=== PATIENT | male | born 1965 | race Caucasian/White ===

== ENCOUNTER 2017-12-31 09:44 | Observation (INO) ==
--- NOTE | 2017-12-31 10:10 | Emergency Department Note ---
Disposition Clinical Impression: Cerebrovascular accident Disposition: Admitted As Inpatient Condition: Undetermined General Adult HPI - General Chief complaint: ED Neuro Symptoms/Deficit Stated complaint: L sided numbness x 3 days ago Time Seen by Provider: 12/31/17 10:06 Source: patient Limitations: no limitations - History of Present Illness Pain Scale: 8 - Related Data Home Medications Medication Instructions Recorded Confirmed Albuterol Sulfate [Albuterol 2 puff IH Q6HR PRN 12/31/17 12/31/17 Inhaler] Aspirin Enteric Coated [Aspirin EC] 81 mg PO DAILY 12/31/17 12/31/17 BuPROPion SR (12 HR) [Wellbutrin 150 mg PO BID 12/31/17 12/31/17 SR] Tiotropium [Spiriva] 18 mcg IH DAILY 12/31/17 12/31/17 Allergies Allergy/AdvReac Type Severity Reaction Status Date / Time No Known Allergies Allergy Verified 12/31/17 09:57 Past Medical History - Past Medical History Medical history: Reports: CHF, COPD, coronary artery disease, hyperlipidemia, myocardial infarction, other Psychiatric history: Reports: depression - Social History Smoking Status: Current every day smoker Smokeless Tobacco Status: No Alcohol use: Reports: occasionally Drug use: Reports: none Physical Exam - General Limitations: no limitations General appearance: alert Course Vital Signs Temperature 98.3 F 12/31/17 09:57 Pulse Rate 101 12/31/17 09:57 Respiratory Rate 20 12/31/17 09:57 Blood Pressure 145/82 12/31/17 09:57 O2 Sat by Pulse Oximetry 97 12/31/17 09:57 Temperature 97.9 F 12/31/17 16:42 Pulse Rate 73 12/31/17 16:42 Respiratory Rate 17 12/31/17 16:42 Blood Pressure 127/80 12/31/17 16:42 O2 Sat by Pulse Oximetry 97 12/31/17 16:42 Oxygen Delivery Oxygen Delivery Room Air Medical Decision Making - Lab Data Result diagrams: 12/31/17 10:13 12/31/17 10:13 Lab Results 12/31/17 12/31/17 Range/Units 10:13 10:13 WBC 6.8 (4.3-11.1) K/mcL RBC 5.02 (4.19-5.50) M/mcL Hgb 15.0 (12.9-16.9) g/dL Hct 43.0 (37.5-50.1) % MCV 85.7 (83.0-100.0) fL MCH 29.9 (28.0-33.3) pg MCHC 34.9 (31.6-35.5) g/dL RDW 14.1 (11.5-14.5) % Plt Count 303 (140-400) K/mcL MPV 9.9 (9.4-12.4) fL Immature Gran % 0.4 (0-4) % Seg Neutrophils % 67.3 % Lymphocytes % 23.0 % Monocytes % 7.7 % Eosinophils % 0.7 % Basophils % 0.9 % Neutrophils # 4.6 (1.6-8.9) K/mcL Lymphocytes # 1.6 (0.6-4.6) K/mcL Monocytes # 0.5 (0.0-1.3) K/mcL Eosinophils # 0.1 (0.0-0.6) K/mcL Basophils # 0.1 (0.0-0.2) K/mcL Sodium 133 L (136-145) mEq/L Potassium 4.7 (3.5-5.1) mEq/L Chloride 104 (98-107) mEq/L Carbon Dioxide 23 (23-29) mEq/L BUN 7 (6-20) mg/dL Creatinine 0.71 (0.70-1.30) mg/dL Est GFR ( Amer) > 60 (> 60) Est GFR (Non-Af Amer) > 60 (> 60) BUN/Creatinine Ratio 10 (6-26) Glucose 118 H (70-105) mg/dL Calculated Osmolality 275 L (280-300) Calcium 9.6 (8.6-10.3) mg/dL Troponin I < 0.03 (< 0.04) ng/mL Attestation Statement - Attestation Attestation: I examined this patient and my medical decision-making was reviewed with the Resident Physician. I agree with the documented findings, disposition and treatment plan as described except to the extent set forth below. [id number] time provided Patient presents with left-sided neurologic symptoms over the past 3 days. He is not a TPA candidate based on length of time since onset of symptoms. He also complains of left upper extremity pain but states he has "a bad back." The patient was evaluated in conjunction with the resident physician . Because symptom onset was 3 days ago a stroke alert was not activated
--- NOTE | 2017-12-31 10:19 | Emergency Department Note ---
Disposition Clinical Impression: Cerebrovascular accident Qualifiers: CVA mechanism: unspecified Qualified Code(s): I63.9 - Cerebral infarction, unspecified Disposition: Admitted As Inpatient Condition: Undetermined Referrals: NONE,PCP [Family Provider] - Forms: ED Satisfaction Letter Time of Disposition: 11:35 Neuro HPI - General Chief Complaint: ED Neuro Symptoms/Deficit Stated Complaint: L sided numbness x 3 days ago Time Seen by Provider: 12/31/17 10:06 Source: patient Mode of arrival: ambulatory Limitations: no limitations Nursing Notes Reviewed: Yes Vital Signs Reviewed: Yes - History of Present Illness HPI Narrative: 52-year-old male with history of chronic back pain with a pain stimulator in his back, history of CAD with previous [place], arrives to emergency department with left sided numbness and tingling from his face, to his left upper extremity, down to his left lower extremity. He has mild weakness associated with his left lower extremity says but this may be baseline for him due to his back problems. The patient states this occurred 3 days ago. We will not call a stroke alert as the patient's symptoms started 3 days ago. Patient denies any other complaints at this time include chest pain, difficulty breathing, abdominal pain, headache, fever, chills, trauma. - Related Data Allergies/Adverse Reactions: Allergies Allergy/AdvReac Type Severity Reaction Status Date / Time No Known Allergies Allergy Verified 12/31/17 09:57 All systems ED: reviewed and negative except as stated. Constitutional: Reports: weakness. Denies: fever, chills ENT ED: Denies: congestion Cardiovascular: Denies: chest pain Respiratory: Denies: dyspnea Gastrointestinal: Denies: abdominal pain Musculoskeletal: Reports: back pain. Denies: neck pain, arthralgia, myalgia Integumentary: Denies: rash Neurological: Reports: weakness, numbness, paresthesias. Denies: headache, confusion, abnormal gait, vertigo Past Medical History - Past Medical History Attestation: Yes The following information was validated with the patient. Source: patient, old records reviewed Medical history: Reports: CHF, COPD, coronary artery disease, hyperlipidemia, myocardial infarction, other Surgical history: Reports: other (Stimulator in back) Psychiatric history: Reports: depression - Social History Smoking Status: Current every day smoker Smokeless Tobacco Status: No Alcohol use: Reports: occasionally Drug use: Reports: none Physical Exam - General Limitations: no limitations General appearance: alert, in no apparent distress, other (Baseline tremor) - Head Head exam: atraumatic, normocephalic, normal inspection - Eye Eye exam: Present: normal appearance, PERRL, EOMI - ENT ENT exam: normal exam, normal oropharynx, mucous membranes moist - Neck Neck exam: Present: normal inspection, full ROM, trachea midline - Chest Chest inspection: Present: normal inspection, symmetric chest wall rise - Respiratory Respiratory exam: Present: other (Coarse breath sounds) - Cardiovascular Cardiovascular exam: Present: normal rhythm, tachycardia, normal heart sounds - Abdominal Exam Abdominal exam: Present: soft, Non-Tender. Absent: tenderness, distention, guarding, rebound, rigidity - Extremities Exam Extremities exam: Present: normal inspection, full ROM (mildly reduced in b/l LE due to chronic back pain). Absent: tenderness, pedal edema - Back Exam Back exam: Present: normal inspection, full ROM. Absent: tenderness - Neurological Exam Neurological exam: Present: alert, oriented X3 - Expanded Neurological Exam Patient oriented to: Present: person, place, time Speech: Present: fluid speech Cranial nerves: EOM function (II, III, IV, ): Normal, facial sensation (V): Abnormal Left, facial palsy (VII): Normal Cerebellar function: finger to nose: Abnormal Left Motor strength - LUE: 4/5 Motor strength - RUE: 4/5 Motor strength - LLE: 3/5 Motor strength - RLE: 3/5 Sensory exam upper extremity: light touch: Abnormal Left Sensory exam lower extremity: light touch: Abnormal Left Coma Scale Eye Opening: Spontaneous Coma Scale Motor Response: Obeys Commands Coma Scale Verbal Response: Oriented Coma Scale Total: 15 - Skin Skin exam: Present: warm, dry, intact, normal color Course Vital Signs Temperature 98.3 F 12/31/17 09:57 Pulse Rate 101 12/31/17 09:57 Respiratory Rate 20 12/31/17 09:57 Blood Pressure 145/82 12/31/17 09:57 O2 Sat by Pulse Oximetry 97 12/31/17 09:57 Temperature 98.3 F 12/31/17 09:57 Pulse Rate 77 12/31/17 10:53 Respiratory Rate 16 12/31/17 10:53 Blood Pressure 125/84 12/31/17 10:53 O2 Sat by Pulse Oximetry 95 12/31/17 10:53 Oxygen Delivery Oxygen Delivery Room Air Neuro Symptoms/Deficit - MDM Narrative Medical decision making narrative: Workup in the emergency department demonstrates no other etiology for patient's symptoms. The patient is mildly hyponatremic. Given the patient's left-sided paresthesias, we will admit the patient to the hospital. There is a likely component of radiculopathy associated with the cervical spine within the patient 's symptoms. The patient denies any other complaints at this time. He was made aware that we will be admitting him and agrees to plan. No further questions or concerns noted at this time. Accepted by Dr. Ramirez. - Lab Data Lab results reviewed: Yes I reviewed the patient's lab results. Result diagrams: 12/31/17 10:13 12/31/17 10:13 Lab Results 12/31/17 12/31/17 Range/Units 10:13 10:13 WBC 6.8 (4.3-11.1) K/mcL RBC 5.02 (4.19-5.50) M/mcL Hgb 15.0 (12.9-16.9) g/dL Hct 43.0 (37.5-50.1) % MCV 85.7 (83.0-100.0) fL MCH 29.9 (28.0-33.3) pg MCHC 34.9 (31.6-35.5) g/dL RDW 14.1 (11.5-14.5) % Plt Count 303 (140-400) K/mcL MPV 9.9 (9.4-12.4) fL Immature Gran % 0.4 (0-4) % Seg Neutrophils % 67.3 % Lymphocytes % 23.0 % Monocytes % 7.7 % Eosinophils % 0.7 % Basophils % 0.9 % Neutrophils # 4.6 (1.6-8.9) K/mcL Lymphocytes # 1.6 (0.6-4.6) K/mcL Monocytes # 0.5 (0.0-1.3) K/mcL Eosinophils # 0.1 (0.0-0.6) K/mcL Basophils # 0.1 (0.0-0.2) K/mcL Sodium 133 L (136-145) mEq/L Potassium 4.7 (3.5-5.1) mEq/L Chloride 104 (98-107) mEq/L Carbon Dioxide 23 (23-29) mEq/L BUN 7 (6-20) mg/dL Creatinine 0.71 (0.70-1.30) mg/dL Est GFR ( Amer) > 60 (> 60) Est GFR (Non-Af Amer) > 60 (> 60) BUN/Creatinine Ratio 10 (6-26) Glucose 118 H (70-105) mg/dL Calculated Osmolality 275 L (280-300) Calcium 9.6 (8.6-10.3) mg/dL Troponin I < 0.03 (< 0.04) ng/mL - Radiology Data Radiology results reviewed: Yes I reviewed the patient's radiology results. Chest X-Ray 12/31/17 10:13 IMPRESSION: Stable chest with no acute cardiopulmonary process. Emphysema. D/ / Florentin Baca MD / Florentin Baca MD Interpreting Provider: Florentin Baca MD Head CT 12/31/17 10:13 IMPRESSION: No acute intracranial abnormality. Prominent white matter disease noted bilaterally which may be related to chronic microvascular disease versus demyelination. Given the patient's symptoms, brain MRI should be considered for further evaluation. D/ / Florentin Baca MD / Florentin Baca MD Interpreting Provider: Florentin aBca MD - EKG Data EKG attestation: Yes I reviewed and interpreted this EKG. EKG results narrative: 76 heart rate. Normal sinus rhythm. No ST elevation or ST depression noted. EKG with nonspecific changes noted from EKG from 04/16/2013. NIH Stroke Scale - Level of Consciousness LOC: Alert - LOC Questions LOC Questions: Answers both correctly - LOC Commands LOC Commands: Performs both correctly - Best Gaze Best Gaze: Normal - Visual Visual: No visual loss - Facial Palsy Facial Palsy: Normal - Motor Arms Motor Arm-Left: No drift for 10 seconds Motor Arm-Right: No drift for 10 seconds - Motor Legs Motor Leg-Left: No drift for 5 seconds Motor Leg-Right: No drift for 5 seconds - Limb Ataxia Limb Ataxia: Normal, No Ataxia - Sensory Sensory: Mild to moderate loss, "not as sharp" - Best Language Best Language: No aphasia - Dysarthria Dysarthria: Normal - Extinction and Inattention Extinction and Inattention: Normal - NIHSS Total Score NIHSS Total Score: 1 TPA Checklist - LKW: 3-4.5 hrs Add. Warnings/Precautions Patient/family understanding: The patient/family members have been counseled and understood the risk, benefit , and alternatives of treatment.
[2017-12-31 10:53] LABS: Basophils # 0.1 K/mcL (0.0-0.2); Basophils % 0.9 %; Eosinophils # 0.1 K/mcL (0.0-0.6); Eosinophils % 0.7 %; Immature Granulocytes % 0.4 % (0-4); Lymphocytes # 1.6 K/mcL (0.6-4.6); Mean Corpuscular HGB Conc 34.9 g/dL (31.6-35.5); Mean Corpuscular Hemoglobin 29.9 pg (28.0-33.3); Mean Corpuscular Volume 85.7 fL (83.0-100.0); Mean Platelet Volume 9.9 fL (9.4-12.4); Monocytes # 0.5 K/mcL (0.0-1.3); Monocytes % 7.7 %; Neutrophils # 4.6 K/mcL (1.6-8.9); Platelet Count 303 K/mcL (140-400); Red Blood Count 5.02 M/mcL (4.19-5.50); Red Cell Distribution Width 14.1 % (11.5-14.5); Segmented Neutrophils % 67.3 %
[2017-12-31 11:20] LABS: BUN/Creatinine Ratio 10 (6-26); Blood Urea Nitrogen 7 mg/dL (6-20); Calcium 9.6 mg/dL (8.6-10.3); Carbon Dioxide 23 mEq/L (23-29); Chloride 104 mEq/L (98-107); Glucose 118 mg/dL (70-105); Osmolality,Calculated 275 (280-300); Potassium 4.7 mEq/L (3.5-5.1); Sodium 133 mEq/L (136-145); Troponin I < 0.03 ng/mL (< 0.04); eGFR For African Americans > 60 (> 60); eGFR For Non-African Americans > 60 (> 60)
[2017-12-31] MEDS ORDERED: Acetaminophen 325 MG TABLET PO PRN (13:03)
--- NOTE | 2017-12-31 13:56 | Internal Med History&Physical ---
<Derrick Perez - Last Filed: 12/31/17 15:58> Date of Encounter: 12/31/17 Time of Encounter: 13:47 Internal Medicine - H&P: HPI Admitted From: Home Plans for Post Hospital Care: Home History of present illness: 52-year-old male with history of chronic back pain with a pain stimulator in his back, history of CAD with previous [place], arrives to emergency department with left sided numbness and tingling from his face, to his left upper extremity, down to his left lower extremity. He has mild weakness associated with his left lower extremity says but this may be baseline for him due to his back problems. The patient states this occurred 3 days ago. He also reported left side blurry vision. Patient denies any other complaints at this time include chest pain, difficulty breathing, abdominal pain, headache, fever, chills, trauma. At the ED, his vital signs were stable. Labs were all unremarkable. CT head revealed bilateral hypodensity near caudae nucleus and external capsule, right side more prominent than left side. Stroke alert was not called because of the lenghth of the symptoms. He will be admitted as inpatient for further management. Past Med Surg Social Fam HX - Past Medical History Medical history: CHF, COPD, coronary artery disease, hyperlipidemia, myocardial infarction, other Psychiatric history: depression - Past Surgical History Surgical History: other (Stimulator in back) - Social History Smoking Status: Current every day smoker Smokeless Tobacco Status: No Alcohol use: occasionally Drug use: none Internal Medicine - H&P: Meds Albuterol Sulfate [Albuterol Inhaler] 2 puff IH Q6HR PRN 12/31/17 [History] Aspirin Enteric Coated [Aspirin EC] 81 mg PO DAILY 12/31/17 [History] BuPROPion SR (12 HR) [Wellbutrin SR] 150 mg PO BID 12/31/17 [History] Tiotropium [Spiriva] 18 mcg IH DAILY 12/31/17 [History] 3 Allergy/AdvReac Type Severity Reaction Status Date / Time No Known Allergies Allergy Verified 12/31/17 09:57 All Systems PM: A 10-system review of systems was performed and is negative for pertinent findings except as documented above in the HPI. Review of systems: REVIEW OF SYSTEMS: CONSTITUTIONAL: No weight loss, fever, chills, weakness or fatigue. HEENT: Eyes: see HPI. SKIN: No rash or itching. CARDIOVASCULAR: see HPI.. RESPIRATORY: No shortness of breath, cough or sputum. GASTROINTESTINAL: No anorexia, nausea, vomiting or diarrhea. No abdominal pain or blood. GENITOURINARY: No dysuria, urgency, or frequency. NEUROLOGICAL: see HPI. MUSCULOSKELETAL: No muscle, back pain, joint pain or stiffness. HEMATOLOGIC: No anemia, bleeding or bruising. LYMPHATICS: No enlarged nodes. No history of splenectomy. PSYCHIATRIC: No history of depression or anxiety. ENDOCRINOLOGIC: No reports of sweating, cold or heat intolerance. No polyuria or polydipsia. - Constitutional Vitals: Temp Pulse Resp BP Pulse Ox 98.3 F 65 16 146/97 97 12/31/17 09:57 12/31/17 13:42 12/31/17 13:42 12/31/17 13:42 12/31/17 13:42 General appearance: Present: A&O X 3 Exam: PHYSICAL EXAMINATION: GENERAL APPEARANCE: The patient is alert, oriented and in no acute distress. HEENT: Head is normocephalic. The sinuses are nontender. Pupils are equal and reactive. The nares are patent. Oropharynx clear without lesions. NECK: Supple without lymphadenopathy. no carotid bruit. HEART: Regular rate and rhythm. LUNGS: No crackles or wheezes are heard. ABDOMEN: Soft, nontender, nondistended with good bowel sounds heard. Inguinal area is normal. EXTREMITIES: Without cyanosis, clubbing or edema. NEUROLOGICAL: facial symmetrical no droop, left side facial sensation decreased. left UE and LE strength 4/5, right side 5/5. Left side sensation decreased on both UE and LE. DTR 2+, at right UE and LE, 1+ on left UE and LE, cerebellar sign normal. SKIN: Warm and dry without any rash. Internal Med - H&P Results - Labs CBC & Chem 7: 12/31/17 10:13 12/31/17 10:13 Labs: Short CBC 12/31/17 Range/Units 10:13 WBC 6.8 (4.3-11.1) K/mcL Hgb 15.0 (12.9-16.9) g/dL Hct 43.0 (37.5-50.1) % Plt Count 303 (140-400) K/mcL Neutrophils # 4.6 (1.6-8.9) K/mcL BMP 12/31/17 10:13 Sodium 133 L Potassium 4.7 Chloride 104 Carbon Dioxide 23 BUN 7 Creatinine 0.71 Glucose 118 H Calcium 9.6 Cardiac Enzymes 12/31/17 Range/Units 10:13 Troponin I < 0.03 (< 0.04) ng/mL - Impressions ITS Impressions Chest X-Ray 12/31/17 10:13 IMPRESSION: Stable chest with no acute cardiopulmonary process. Emphysema. D/ / Florentin Baca MD / Florentin Baca MD Interpreting Provider: Florentin Baca MD Head CT 12/31/17 10:13 IMPRESSION: No acute intracranial abnormality. Prominent white matter disease noted bilaterally which may be related to chronic microvascular disease versus demyelination. Given the patient's symptoms, brain MRI should be considered for further evaluation. D/ / Florentin Baca MD / Florentin Baac MD Interpreting Provider: Florentin Baca MD - Assessment and plan (1) Cerebrovascular accident Current Visit: Yes Status: Acute Assessment and plan: - symptoms developed three days ago and out the therapy window. - CT head revealed prominent hypodensity at right caudea nucleus and right ecternal capsule, suggests stroke of Rt MCA panetrating branches. - unable to obtain MRI due to implanted pain pump. - will order CTA head, carotid doppler, and echo with bubble study. - Neuro monitoring and swallowing eval. - continue asa, add statins, and treat HTN if indicated. - Neuro consult. Qualifiers: CVA mechanism: unspecified Qualified Code(s): I63.9 - Cerebral infarction, unspecified (2) CAD (coronary artery disease) Current Visit: No Status: Chronic Assessment and plan: - no chest pain, continue asa. Qualifiers: Coronary Disease-Associated Artery/Lesion type: [place] artery [place] vs. transplanted heart: [place] heart Associated angina: without angina Qualified Code(s): I25.10 - Atherosclerotic heart disease of [place] coronary artery without angina pectoris (3) COPD (chronic obstructive pulmonary disease) Current Visit: No Status: Chronic Assessment and plan: - stable, continue home meds. Qualifiers: COPD type: unspecified COPD Qualified Code(s): J44.9 - Chronic obstructive pulmonary disease, unspecified (4) Chronic back pain Current Visit: No Status: Chronic Assessment and plan: - had a pain pump. Qualifiers: Back pain location: back pain in unspecified location Back pain laterality : unspecified Qualified Code(s): M54.9 - Dorsalgia, unspecified; G89.29 - Other chronic pain; G89.29 - Other chronic pain - Time Spent With Patient Total time spent is greater than 50% in coordination of care (as documented) at patient's floor/unit and/or counseling patient: Greater than 35 minutes <Prieto Ramirez T - Last Filed: 01/01/18 09:08> Date of Encounter: 01/01/18 Internal Medicine - H&P: HPI History of present illness: Mr. Curtis is a 52 year old male Past Med Surg Social Fam HX - Family History Father Living Status: Age at : 68 Hx Family Cardiac Disorders: Yes Hx Family Respiratory Disorders: Yes Mother Living Status: Still Living Hx Family Cardiac Disorders: Yes Hx Family Cancer: (breast cancer) Brother Hx Family Cancer: (prostate cancer) All Systems PM: A 10-system review of systems was performed and is negative for pertinent findings except as documented above in the HPI. - Constitutional Vitals: Temp Pulse Resp BP Pulse Ox 97.7 F 87 16 151/92 92 01/01/18 07:54 01/01/18 07:54 01/01/18 07:54 01/01/18 07:54 01/01/18 07:54 Internal Med - H&P Results - Labs CBC & Chem 7: 01/01/18 04:05 01/01/18 04:05 Labs: Short CBC 01/01/18 Range/Units 04:05 WBC 5.7 (4.3-11.1) K/mcL Hgb 13.5 D (12.9-16.9) g/dL Hct 39.4 (37.5-50.1) % Plt Count 267 (140-400) K/mcL Neutrophils # 3.2 (1.6-8.9) K/mcL BMP 01/01/18 04:05 Sodium 132 L Potassium 3.9 Chloride 104 Carbon Dioxide 23 BUN 12 Creatinine 0.71 Glucose 103 Calcium 9.1 - Impressions ITS Impressions Cervical Spine CT 12/31/17 16:20 IMPRESSION: No acute abnormality of the cervical spine. Partial opacification right mastoid air cells can be seen with acute or chronic infectious or inflammatory process these. Emphysema. D/ / Heladio Morris / Heladio Morris Interpreting Provider: Heladio Morris Shoulder X-Ray 12/31/17 16:20 IMPRESSION: Unremarkable radiographs left shoulder. Follow-up imaging recommended if pain persists or worsens following conservative management. D/ / Heladio Morris / Heladio Morris Interpreting Provider: Heladio Morris - Attending Attestation 52 yr old man admitted for possible stroke. Very poor historian. Initially c/o left-sided weakness and fall resulting in right shoulder pain. CT-Head negative for acute ICH but did show a hypodense area assocaiated with the bilateral CN and because he has an implanted pain stimulator for chronic back pain an MRI was not possible so a CTA-Head was done. 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 This is likely only an incidental finding. He has what appears to be nonradicular pain radiating from his left neck to left shoulder and arm. Cervical rotation in either direction or spurling's maneuver reproduces this symptom. A CT cervical spine showed some degenerative changes but no significant central canal stenosis. He has no focal neuro deficits at this time. The left shoulder XRay was unrevealing. Neurology was consulted and an Echo is still pending. - Assessment and plan (1) Cerebrovascular accident Current Visit: Yes Status: Acute Qualifiers: CVA mechanism: unspecified Qualified Code(s): I63.9 - Cerebral infarction, unspecified (2) CAD (coronary artery disease) Current Visit: No Status: Chronic Qualifiers: Coronary Disease-Associated Artery/Lesion type: [place] artery [place] vs. transplanted heart: [place] heart Associated angina: without angina Qualified Code(s): I25.10 - Atherosclerotic heart disease of [place] coronary artery without angina pectoris (3) COPD (chronic obstructive pulmonary disease) Current Visit: No Status: Chronic Qualifiers: COPD type: unspecified COPD Qualified Code(s): J44.9 - Chronic obstructive pulmonary disease, unspecified (4) Chronic back pain Current Visit: No Status: Chronic Qualifiers: Back pain location: back pain in unspecified location Back pain laterality : unspecified Qualified Code(s): M54.9 - Dorsalgia, unspecified; G89.29 - Other chronic pain; G89.29 - Other chronic pain - Time Spent With Patient Total time spent is greater than 50% in coordination of care (as documented) at patient's floor/unit and/or counseling patient:
[2017-12-31] MEDS: Aspirin 81 MG TAB.CHEW PO SCH (16:24)
[2017-12-31] MEDS: *HR* Heparin 5,000 UNIT/ML VIAL SQ SCH (17:46)
[2017-12-31] MEDS: BuPROPion SR (12 HR) 150 MG TABLET PO SCH (21:46)
[2018-01-01 04:27] LABS: Basophils # 0.1 K/mcL (0.0-0.2); Basophils % 0.9 %; Eosinophils # 0.1 K/mcL (0.0-0.6); Eosinophils % 2.3 %; Hematocrit 39.4 % (37.5-50.1); Hemoglobin 13.5 g/dL (12.9-16.9); Immature Granulocytes % 0.3 % (0-4); Lymphocytes # 1.8 K/mcL (0.6-4.6); Lymphocytes % 31.6 %; Mean Corpuscular HGB Conc 34.3 g/dL (31.6-35.5); Mean Corpuscular Hemoglobin 29.7 pg (28.0-33.3); Mean Corpuscular Volume 86.6 fL (83.0-100.0); Mean Platelet Volume 10.1 fL (9.4-12.4); Monocytes # 0.5 K/mcL (0.0-1.3); Monocytes % 8.7 %; Neutrophils # 3.2 K/mcL (1.6-8.9); Platelet Count 267 K/mcL (140-400); Red Blood Count 4.55 M/mcL (4.19-5.50); Red Cell Distribution Width 13.9 % (11.5-14.5); Segmented Neutrophils % 56.2 %
[2018-01-01 04:48] LABS: BUN/Creatinine Ratio 17 (6-26); Blood Urea Nitrogen 12 mg/dL (6-20); Calcium 9.1 mg/dL (8.6-10.3); Carbon Dioxide 23 mEq/L (23-29); Chloride 104 mEq/L (98-107); Chol/HDL Ratio 1.9 (0-4.9); Cholesterol 119 mg/dL (< 200); Glucose 103 mg/dL (70-105); HDL Cholesterol 64 mg/dL (40-59); LDL Cholesterol,Calculated 44 mg/dL (0-99); Osmolality,Calculated 274 (280-300); Potassium 3.9 mEq/L (3.5-5.1); Sodium 132 mEq/L (136-145); Triglycerides 53 mg/dL (< 150); eGFR For African Americans > 60 (> 60); eGFR For Non-African Americans > 60 (> 60)
[2018-01-01] MEDS: *HR* Heparin 5,000 UNIT/ML VIAL SQ SCH (05:56)
[2018-01-01] MEDS ORDERED: Perflutren Lipid Microsphere 1.3 ML in 0.9 % Sodium Chloride 8.7 ML IVP ONE (08:56)
[2018-01-01] MEDS ORDERED: Tiotropium 18 MCG inhalation IH SCH (09:00)
[2018-01-01] MEDS: Aspirin 81 MG TAB.CHEW PO SCH (10:32)
[2018-01-01] MEDS: BuPROPion SR (12 HR) 150 MG TABLET PO SCH (10:32)
--- NOTE | 2018-01-01 10:36 | Neurology - Consult Note ---
Date of Encounter: 01/01/18 Time of Encounter: 10:32 Assessment and Plan (1) Cerebrovascular accident Current Visit: Yes Status: Acute Patient can not have MRI scanning but symptoms and signs are most consistent with lacunar infarct involving the right BG. CT of head showed focal signal hypointensity of indeterminate age and he is certainly at risk of having small vessel lacunar infarct due to history of tobacco smoking. CT of head showed focal bilateral BG hypointensities, likely related to microvascular ischemia than demyelinating. He has no typical presentation of demyelinating disorder. Will recommend stroke work up including MRI of brain, carotid artery duplex, echocardiography, keeps him on Antiplatelet therapy in the form of aspirin 81mg daily. Qualifiers: CVA mechanism: unspecified Qualified Code(s): I63.9 - Cerebral infarction, unspecified (2) Cerebral aneurysm without rupture Current Visit: Yes Status: Acute Incidental finding of 8mm cerebral aneurysm at the right MCA bifurcation. Patient is advised to see neurosurgery but he refused to be transferred right now and would like to go later. He is advised to follow up with me at neurology office so i can referred him to [facility] or [facility] promptly. History of Present Illness Chief complaint: left sided weakness and numbness HPI: Mr. Curtis is a 52 year old male with PMH significant for tobacco abuse, lumbar back pain, s/p lumbar back surgery who developed acute onset of left sided weakness and numbness. He states that at evening hours he developed left sided numbness, he did not seek medical attention and thought it would eventually go away. The second day however, the symptoms did not go away and it got worse and he also developed weakness to his left arm and leg and facial droop. Therefore he went to ER. CT of head showed focal signal intensity at the bilateral BG right more than left side, concerning for microvascular ischemic changes vs demyelination. Last night after he was given his home medications he started feeling better and now he is back to baseline CTA of brain also completed and showed 8mm cerebral aneurysm at the right MCA territory. He normally 'tries' to take aspirin every day. Past Med Surg Social Fam HX - Past Medical History Medical history: CHF, COPD, coronary artery disease, hyperlipidemia, myocardial infarction, other Psychiatric history: depression - Past Surgical History Surgical History: other - Social History Smoking Status: Current every day smoker Smokeless Tobacco Status: No Alcohol use: occasionally Drug use: none - Family History Father Living Status: Age at : 68 Hx Family Cardiac Disorders: Yes Hx Family Respiratory Disorders: Yes Mother Living Status: Still Living Hx Family Cardiac Disorders: Yes Hx Family Cancer: (breast cancer) Brother Hx Family Cancer: (prostate cancer) Medications and Allergies Albuterol Sulfate [Albuterol Inhaler] 2 puff IH Q6HR PRN 12/31/17 [History] Aspirin Enteric Coated [Aspirin EC] 81 mg PO DAILY 12/31/17 [History] BuPROPion SR (12 HR) [Wellbutrin SR] 150 mg PO BID 12/31/17 [History] Tiotropium [Spiriva] 18 mcg IH DAILY 12/31/17 [History] 3 Allergy/AdvReac Type Severity Reaction Status Date / Time No Known Allergies Allergy Verified 12/31/17 09:57 All Systems: The remainder of the systems were reviewed and are negative Physical Examination - Vital Signs Vital Signs: Initial Vital Signs Temp Pulse Resp BP Pulse Ox 98.3 F 101 20 145/82 97 12/31/17 09:57 12/31/17 09:57 12/31/17 09:57 12/31/17 09:57 12/31/17 09:57 - Constitutional General appearance: comfortable, older than stated age - Neurologic Detailed motor examination: full strength in all major muscle groups Motor examination - right side: 5/5: deltoids, biceps, triceps, wrist flexion, wrist extension, flight test supervisor, hip flexors, tibialis Anterior, quadriceps, toe extension (EHL), plantarflexion Motor examination - left side: 5/5: deltoids, biceps, triceps, wrist flexion, wrist extension, hip flexors, flight test supervisor, quadriceps, tibialis Anterior, toe extension (EHL), plantarflexion Mental Status Examination: awake, alert, oriented to person, oriented to place, oriented to time, follows commands appropriately, answers questions appropriately, no agnosia, no aphasia, no aproxia Cranial nerve examination: PERRL, EOMI, visual burkett intact, corneal reflexes brisk symmetrically, sensory to face intact, mastication intact, no facial asymmetry is present, no dysarthria, hearing is intact symmetrically, soft palate elevates bilaterally upon phonation, gag reflex intact, flexes SCM and trapezius muscles symmetrically with full power, tongue protrudes midline, no atrophy or facial fasiculations present Cerebellar examination: no dysmetria, performs finger to nose and heel to quispe symmetrically without ataxia, no gait ataxia, no truncal ataxia, no difficulty with rapid alternating movements Results - Laboratory Findings CBC and BMP: 01/01/18 04:05 01/01/18 04:05 Abnormal lab findings: Abnormal lab results Sodium 132 mEq/L (136-145) L 01/01/18 04:05 Calculated Osmolality 274 (280-300) L 01/01/18 04:05 HDL Cholesterol 64 mg/dL (40-59) H 01/01/18 04:05 Consult Discharge Plan - Plan Referrals: Tao Christensen MD [Primary Care Provider] - NONE,PCP [Family Provider] -
--- NOTE | 2018-01-01 16:06 | Discharge Summary ---
- NOTES TO OUTPATIENT PROVIDER Notes to Outpatient Provider: Patient needs to have a T GERBER as an outpatient as he does not want to stay to have it done and patient tomorrow so cardiology will be consult. As per recommendations and the echocardiogram report. He will follow-up with from neurology. The patient was advised to go to [facility] by neurology for evaluation and treatment of an intercranial aneurysm but patient did not want to go. The doctor stated he will follow-up with him in the office in a week and refer him on. Date of Encounter: 01/01/18 Time of Encounter: 16:04 - Discharge Diagnosis (1) Cerebrovascular accident Priority: Primary Status: Acute Qualifiers: CVA mechanism: unspecified Qualified Code(s): I63.9 - Cerebral infarction, unspecified (2) CAD (coronary artery disease) Priority: Primary Status: Chronic Qualifiers: Coronary Disease-Associated Artery/Lesion type: [place] artery [place] vs. transplanted heart: [place] heart Associated angina: without angina Qualified Code(s): I25.10 - Atherosclerotic heart disease of [place] coronary artery without angina pectoris (3) COPD (chronic obstructive pulmonary disease) Priority: Primary Status: Chronic Qualifiers: COPD type: unspecified COPD Qualified Code(s): J44.9 - Chronic obstructive pulmonary disease, unspecified (4) Chronic back pain Priority: Primary Status: Chronic Qualifiers: Back pain location: back pain in unspecified location Back pain laterality : unspecified Qualified Code(s): M54.9 - Dorsalgia, unspecified; G89.29 - Other chronic pain; G89.29 - Other chronic pain (5) Cerebral aneurysm without rupture Priority: Primary Status: Chronic Hospital course: Mr. Curtis is a 52 year old male with a history of chronic back pain with pain stimulator, CAD with previous [place], COPD, depression, and tobacco abuse who presented to the emergency department with left-sided numbness and tingling to his face left upper extremity down his left lower extremity that had been ongoing for about 3 days. He originally associated the mild weakness with his back problems but then he developed left-sided blurry vision and presented for evaluation. He denied any other complaints. Labs were unremarkable. CT the head revealed bilateral hypodensity near the caudate nucleus and external capsule right side more prominent than the left side. Stroke alert was not called because of the length of symptoms he is unable to have an MRI secondary to the implanted pain pump. He is an everyday spoke to her and knows that he should stop. Neurology saw the patient and wished to they could have an MRI but as he is not able to he feels the signs are most consistent with lacunar infarct involving the right BG. CT of the head showed focal signal hypodensity of indeterminate age and he felt he was at risk of having small vessel occluder infarct due to history of tobacco smoking. Also incidental finding of 8 mm Cipro aneurysm at the right MCA bifurcation. Patient was advised by neuro service to go to [facility] for nerve neurosurgery consult but he refused to be transferred today and would like to go at a later time. He was advised that this could cause his or significant stroke if he did not have it attended to. He has agreed to follow-up with Dr. Nails in his office within the week and arrangements were made for follow-up at [facility]. He is to continue 81 mg baby aspirin daily. Echocardiogram was reviewed with LVEF 55-60%, normal LV chamber size wall thickness and function. Mildly dilated right ventricle. No evidence of PFO with agitated saline contrast. No pulmonary hypertension. The pericardium appeared normal. No obvious source for CVA however poor image quality makes ruling out cardiac source difficult. Recommend a superior imaging modality such as GERBER. Patient will not stay to have this done but will follow-up as an outpatient so cardiology will be notified so they can contact the patient to have this set up outpatient. Carotid artery duplex was negative for any plaquing. The patient is aware of this. I have discussed with Dr. Nails earlier today and he had sat of these findings were normal he could be discharged. The patient is adamant that he wants to go home and have the rest of his follow-up done as an outpatient and he will not consider transferring to [facility] or to stay for cardiology to complete the GERBER. He will take his aspirin daily and promises to follow-up with Dr. Nails in the outpatient setting. Discharge discussed with: patient, nurse, managed services consultant Time spent discussing smoking cessation with patient: 3 to 10 minutes - Time Spent with Patient Total time spent providing and/or coordinating discharge services: Less than 30 minutes - Discharge Medications Home Medications: Albuterol Sulfate [Albuterol Inhaler] 2 puff IH Q6HR PRN 12/31/17 [History] Aspirin Enteric Coated [Aspirin EC] 81 mg PO DAILY 12/31/17 [History] BuPROPion SR (12 HR) [Wellbutrin SR] 150 mg PO BID 12/31/17 [History] Tiotropium [Spiriva] 18 mcg IH DAILY 12/31/17 [History] Allergies/Adverse Reactions: 3 Allergy/AdvReac Type Severity Reaction Status Date / Time No Known Allergies Allergy Verified 12/31/17 09:57 Date of admission: 12/31/17 15:11 Primary care physician: Tao Christensen MD Discharging clinician: Tiffany Dominguez Anticipated date of discharge: 01/01/18 - Constitutional Vitals: Temp Pulse Resp BP Pulse Ox 97.4 F L 57 15 146/92 97 01/01/18 11:28 01/01/18 11:28 01/01/18 11:28 01/01/18 11:28 01/01/18 11:28 General appearance: Present: cooperative, A&O X 3, pleasant, no acute distress, answers questions appropriately - Head Head exam: Present: atraumatic, normocephalic - Eye Eye exam: Present: normal appearance, PERRL, conjuntiva pink, sclera anicteric Pupils: Present: PERRL - Neck Neck exam general surgery: Present: supple, trachea midline. Absent: lymphadenopathy - Respiratory Respiratory exam: Present: CTAB. Absent: accessory muscle use, rales, rhonchi, wheezes - Cardiovascular Cardiovascular exam: Present: RRR, +S1, +S2. Absent: diastolic murmur, gallop, rubs, systolic murmur - GI/Abdominal GI/Abdominal exam: Present: normal bowel sounds, soft, no peritoneal signs. Absent: distended, tenderness - Extremities Exam Extremities exam: Present: warm, radial pulses palpable and symmetrical. Absent : calf tenderness, cyanotic, pedal edema - Neurological Exam Neurological exam: Present: alert, CN II-XII intact, normal gait, oriented X3, no focal deficits, strengths equal and symetr throughout. Absent: pronater drift, facial droop, speech deficit - Skin Skin exam: Present: dry, intact, normal color, warm - Patient Status Disposition: Home, Self-Care Condition: Undetermined Functional capacity at discharge: independent ambulation Overall status at discharge: patient is progressing back to baseline - Discharge Instructions Follow Up With: Tao Christensen MD [Primary Care Provider] - NONE,PCP [Family Provider] - - Diet and Activity Activity: increase activity as tolerated Diet: low fat, low cholesterol
[2018-01-01 16:13] VITALS: BP 142/81
--- NOTE | 2018-01-04 00:38 | Electrocardiograph Report ---
[address] [place], [place] [address] Test Date: 2017-12-31 Pat Name: Dinh Curtis Department: 102 Room: 3B Gender: M Preboarder: : 1965 Requested By: Lucien Drake Order Number: [id number] Reading MD: Tiffanie Goel Measurements Intervals [place] Rate: 76 P: 73 [place]: 111 QRS: 89 QRSD: 101 T: 82 QT: 382 QTc: 412 Interpretive Statements SINUS RHYTHM WITH SHORT [place] INTERVAL Electronically Signed On 01-04-2018 0:36:40 EDT by Tiffanie Goel
== END 2018-01-01 17:02 | disposition home or self-care (01) ==
LOC: EMEROO 09:44 → 3BNU 09:44
PROVIDERS: ADMIT Internal Medicine; ATTEND Registered Nurse

== ENCOUNTER 2022-02-10 11:02 | Inpatient (IN) ==
[2022-02-10] MEDS ORDERED: Isovue-370 500 ML BOTTLE IVP ONE (12:39)
[2022-02-10] MEDS ORDERED: Tdap (Boostrix) Vaccine 0.5 ML SYRINGE IM ONE (12:45)
[2022-02-10 13:09] LABS: Basophils % 0.5 %; Eosinophils # 0.1 K/mcL (0.0-0.6); Eosinophils % 1.4 %; Hematocrit 38.2 % (37.5-50.1); Hemoglobin 12.9 g/dL (12.9-16.9); Immature Granulocytes % 0.4 % (0-4); Lymphocytes # 1.5 K/mcL (0.6-4.6); Lymphocytes % 19.3 %; Mean Corpuscular HGB Conc 33.8 g/dL (31.6-35.5); Mean Corpuscular Hemoglobin 28.6 pg (28.0-33.3); Mean Corpuscular Volume 84.7 fL (83.0-100.0); Monocytes # 0.8 K/mcL (0.0-1.3); Monocytes % 10.1 %; Neutrophils # 5.2 K/mcL (1.6-8.9); Platelet Count 350 K/mcL (140-400); Red Blood Count 4.51 M/mcL (4.19-5.50); Red Cell Distribution Width 13.5 % (11.5-14.5); Segmented Neutrophils % 68.3 %; White Blood Count 7.6 K/mcL (4.3-11.1)
[2022-02-10 13:24] LABS: INR 1.1; Prothrombin Time 12.1 Seconds (9.4-12.1)
[2022-02-10 13:26] LABS: Activated Partial Thrombo Time 35.5 Seconds (26.0-36.0)
[2022-02-10 13:36] LABS: Alanine Aminotransferase 20 Units/L (7-52); Albumin 4.2 g/dL (3.5-5.7); Albumin/Globulin Ratio 1.5 (1.1-2.2); Alkaline Phosphatase 110 Units/L (34-104); Aspartate Amino Transferase 24 Units/L (13-39); BUN/Creatinine Ratio 10 (6-26); Bilirubin,Indirect 0.3 mg/dL (0.0-1.0); Bilirubin,Total 0.3 mg/dL (0.3-1.0); Blood Urea Nitrogen 7 mg/dL (6-20); C-Reactive Protein 22 mg/L (Less than 10); Calcium 9.6 mg/dL (8.6-10.3); Carbon Dioxide 26 mEq/L (23-29); Chloride 98 mEq/L (98-107); Creatine Kinase 336 Units/L (30-223); Globulin 2.8 g/dL (2.4-3.5); Glucose 94 mg/dL (70-105); Osmolality,Calculated 274 (280-300); Potassium 4.1 mEq/L (3.5-5.1); Sodium 133 mEq/L (136-145); eGFR For African Americans > 60 (> 60); eGFR For Non-African Americans > 60 (> 60)
[2022-02-10 13:37] LABS: Troponin I < 0.03 ng/mL (< 0.04)
[2022-02-10] MEDS ORDERED: Naloxone 0.4 MG/ML INJ IVP PRN (18:29)
[2022-02-10] MEDS ORDERED: Ondansetron ODT 4 MG TAB.RAPDIS SL PRN (18:29)
[2022-02-10] MEDS ORDERED: Acetaminophen 325 MG TABLET PO PRN (18:29)
[2022-02-10] MEDS ORDERED: Melatonin 3 MG TABLET PO PRN (18:29)
[2022-02-10] MEDS ORDERED: *HR* OxyCODONE Immed Rel 5 MG TABLET PO PRN ×2 (18:29→18:36)
[2022-02-10] MEDS: Gabapentin 400 MG CAPSULE PO SCH (21:04)
[2022-02-10] MEDS: *HR* Heparin 5,000 UNIT/ML VIAL SQ SCH (21:04)
[2022-02-11] MEDS: *HR* HYDROcodone/Acet 5/325 mg TABLET PO PRN (00:22)
[2022-02-11 03:17] LABS: Basophils % 0.5 %; Eosinophils # 0.1 K/mcL (0.0-0.6); Eosinophils % 1.7 %; Hematocrit 38.5 % (37.5-50.1); Hemoglobin 12.8 g/dL (12.9-16.9); Immature Granulocytes % 0.3 % (0-4); Lymphocytes # 1.2 K/mcL (0.6-4.6); Lymphocytes % 19.5 %; Mean Corpuscular HGB Conc 33.2 g/dL (31.6-35.5); Mean Corpuscular Hemoglobin 28.1 pg (28.0-33.3); Mean Corpuscular Volume 84.6 fL (83.0-100.0); Mean Platelet Volume 9.8 fL (9.4-12.4); Monocytes # 0.8 K/mcL (0.0-1.3); Monocytes % 12.7 %; Neutrophils # 3.9 K/mcL (1.6-8.9); Platelet Count 341 K/mcL (140-400); Red Blood Count 4.55 M/mcL (4.19-5.50); Red Cell Distribution Width 13.5 % (11.5-14.5); Segmented Neutrophils % 65.3 %; White Blood Count 5.9 K/mcL (4.3-11.1)
[2022-02-11 03:24] LABS: BUN/Creatinine Ratio 9 (6-26); Blood Urea Nitrogen 6 mg/dL (6-20); Calcium 9.2 mg/dL (8.6-10.3); Carbon Dioxide 27 mEq/L (23-29); Chloride 105 mEq/L (98-107); Glucose 101 mg/dL (70-105); Magnesium 1.8 mg/dL (1.6-2.6); Osmolality,Calculated 282 (280-300); Phosphorous 3.6 mg/dL (2.7-4.5); Sodium 137 mEq/L (136-145); eGFR For African Americans > 60 (> 60); eGFR For Non-African Americans > 60 (> 60)
[2022-02-11 03:28] LABS: INR 1.2; Prothrombin Time 13.1 Seconds (9.4-12.1)
[2022-02-11] MEDS: *HR* Heparin 5,000 UNIT/ML VIAL SQ SCH ×3 (06:16→22:03)
[2022-02-11] MEDS: Cyanocobalamin (B-12) 1,000 MCG TABLET PO SCH (07:20)
[2022-02-11] MEDS: Aspirin Enteric Coated 81 MG Tablet PO SCH (07:20)
[2022-02-11] MEDS: Gabapentin 400 MG CAPSULE PO SCH ×3 (07:20→22:02)
[2022-02-11] MEDS ORDERED: *HR* LORazepam 2 MG/ML VIAL IVP PRN ×3 (08:40)
[2022-02-11] MEDS: Tiotropium 10 INH DOSE IH SCH (10:17)
[2022-02-11] MEDS ORDERED: Perflutren Lipid Microsphere 1.3 ML in 0.9 % Sodium Chloride 8.7 ML IVP PRN (11:52)
[2022-02-11] MEDS: Thiamine (B-1) 100 MG, Folic Acid 1 MG, MVI, adult with vitamin K 10 ML in 0.9 % Sodi... IVPB SCH (17:20)
[2022-02-11 21:34] LABS: Folate > 22.3 ng/mL (3.0-16.0); Vitamin D 25 Hydroxy 12 ng/mL (30-80)
[2022-02-12 06:07] LABS: Basophils % 0.2 %; Eosinophils # 0.1 K/mcL (0.0-0.6); Eosinophils % 1.1 %; Hematocrit 39.6 % (37.5-50.1); Immature Granulocytes % 0.3 % (0-4); Lymphocytes # 1.2 K/mcL (0.6-4.6); Lymphocytes % 13.8 %; Mean Corpuscular HGB Conc 32.8 g/dL (31.6-35.5); Mean Corpuscular Hemoglobin 28.2 pg (28.0-33.3); Mean Corpuscular Volume 85.9 fL (83.0-100.0); Monocytes % 10.9 %; Platelet Count 323 K/mcL (140-400); Red Blood Count 4.61 M/mcL (4.19-5.50); Red Cell Distribution Width 13.7 % (11.5-14.5); Segmented Neutrophils % 73.7 %
[2022-02-12 06:18] LABS: Neutrophils # 6.6 K/mcL (1.6-8.9); White Blood Count 8.9 K/mcL (4.3-11.1)
[2022-02-12 06:25] LABS: BUN/Creatinine Ratio 10 (6-26); Blood Urea Nitrogen 7 mg/dL (6-20); Calcium 9.4 mg/dL (8.6-10.3); Carbon Dioxide 28 mEq/L (23-29); Chloride 104 mEq/L (98-107); Glucose 109 mg/dL (70-105); Osmolality,Calculated 283 (280-300); Potassium 3.9 mEq/L (3.5-5.1); Sodium 137 mEq/L (136-145); eGFR For African Americans > 60 (> 60); eGFR For Non-African Americans > 60 (> 60)
[2022-02-12] MEDS: *HR* Heparin 5,000 UNIT/ML VIAL SQ SCH ×3 (06:51→20:40)
[2022-02-12] MEDS ORDERED: Cholecalciferol (D-3) 1,000 UNIT (25MCG) TABLET PO ONE (09:45)
[2022-02-12] MEDS: Tiotropium 10 INH DOSE IH SCH (10:40)
[2022-02-12] MEDS: Gabapentin 400 MG CAPSULE PO SCH ×3 (11:16→20:40)
[2022-02-12] MEDS: Cyanocobalamin (B-12) 1,000 MCG TABLET PO SCH (11:16)
[2022-02-12] MEDS: Aspirin Enteric Coated 81 MG Tablet PO SCH (11:16)
[2022-02-12] MEDS: Thiamine (B-1) 100 MG, Folic Acid 1 MG, MVI, adult with vitamin K 10 ML in 0.9 % Sodi... IVPB SCH (17:13)
[2022-02-13 02:56] LABS: Hematocrit 36.5 % (37.5-50.1); Hemoglobin 11.8 g/dL (12.9-16.9); Mean Corpuscular HGB Conc 32.3 g/dL (31.6-35.5); Mean Corpuscular Hemoglobin 27.7 pg (28.0-33.3); Mean Corpuscular Volume 85.7 fL (83.0-100.0); Mean Platelet Volume 10.3 fL (9.4-12.4); Platelet Count 327 K/mcL (140-400); Red Blood Count 4.26 M/mcL (4.19-5.50); Red Cell Distribution Width 13.8 % (11.5-14.5); White Blood Count 7.7 K/mcL (4.3-11.1)
[2022-02-13 03:21] LABS: BUN/Creatinine Ratio 17 (6-26); Blood Urea Nitrogen 15 mg/dL (6-20); Calcium 9.2 mg/dL (8.6-10.3); Carbon Dioxide 28 mEq/L (23-29); Chloride 101 mEq/L (98-107); Glucose 103 mg/dL (70-105); Osmolality,Calculated 283 (280-300); Potassium 3.9 mEq/L (3.5-5.1); Sodium 136 mEq/L (136-145); eGFR For African Americans > 60 (> 60); eGFR For Non-African Americans > 60 (> 60)
[2022-02-13] MEDS: *HR* Heparin 5,000 UNIT/ML VIAL SQ SCH ×3 (05:20→21:17)
[2022-02-13] MEDS: Tiotropium 10 INH DOSE IH SCH (08:04)
[2022-02-13] MEDS: Cyanocobalamin (B-12) 1,000 MCG TABLET PO SCH (09:33)
[2022-02-13] MEDS: Cholecalciferol (D-3) 1,000 UNIT (25MCG) TABLET PO SCH (09:33)
[2022-02-13] MEDS: Gabapentin 400 MG CAPSULE PO SCH ×3 (09:33→21:17)
[2022-02-13] MEDS: Aspirin Enteric Coated 81 MG Tablet PO SCH (09:33)
[2022-02-13] MEDS: *HR* HYDROcodone/Acet 5/325 mg TABLET PO PRN (16:07)
[2022-02-13] MEDS: Thiamine (B-1) 100 MG, Folic Acid 1 MG, MVI, adult with vitamin K 10 ML in 0.9 % Sodi... IVPB SCH (18:07)
[2022-02-14] MEDS: *HR* Heparin 5,000 UNIT/ML VIAL SQ SCH ×3 (05:28→21:16)
[2022-02-14] MEDS: Tiotropium 10 INH DOSE IH SCH (08:06)
[2022-02-14] MEDS: Gabapentin 400 MG CAPSULE PO SCH ×3 (10:35→21:16)
[2022-02-14] MEDS: Aspirin Enteric Coated 81 MG Tablet PO SCH (10:35)
[2022-02-14] MEDS: Cyanocobalamin (B-12) 1,000 MCG TABLET PO SCH (10:35)
[2022-02-14] MEDS: Cholecalciferol (D-3) 1,000 UNIT (25MCG) TABLET PO SCH (10:35)
[2022-02-14] MEDS: *HR* HYDROcodone/Acet 5/325 mg TABLET PO PRN (10:42)
[2022-02-15] MEDS: *HR* Heparin 5,000 UNIT/ML VIAL SQ SCH ×3 (05:03→21:15)
[2022-02-15 06:06] LABS: Hemoglobin 12.5 g/dL (12.9-16.9); Mean Corpuscular HGB Conc 32.9 g/dL (31.6-35.5); Mean Corpuscular Hemoglobin 28.2 pg (28.0-33.3); Mean Corpuscular Volume 85.6 fL (83.0-100.0); Mean Platelet Volume 10.4 fL (9.4-12.4); Platelet Count 348 K/mcL (140-400); Red Blood Count 4.44 M/mcL (4.19-5.50); Red Cell Distribution Width 13.6 % (11.5-14.5); White Blood Count 6.8 K/mcL (4.3-11.1)
[2022-02-15 06:25] LABS: BUN/Creatinine Ratio 27 (6-26); Blood Urea Nitrogen 20 mg/dL (6-20); Calcium 9.2 mg/dL (8.6-10.3); Carbon Dioxide 27 mEq/L (23-29); Chloride 98 mEq/L (98-107); Glucose 97 mg/dL (70-105); Osmolality,Calculated 277 (280-300); Potassium 4.4 mEq/L (3.5-5.1); Sodium 132 mEq/L (136-145); eGFR For African Americans > 60 (> 60); eGFR For Non-African Americans > 60 (> 60)
[2022-02-15] MEDS: Tiotropium 10 INH DOSE IH SCH (08:05)
[2022-02-15] MEDS: Aspirin Enteric Coated 81 MG Tablet PO SCH (09:57)
[2022-02-15] MEDS: Cholecalciferol (D-3) 1,000 UNIT (25MCG) TABLET PO SCH (09:57)
[2022-02-15] MEDS: Gabapentin 400 MG CAPSULE PO SCH ×3 (09:58→21:14)
[2022-02-15] MEDS: Cyanocobalamin (B-12) 1,000 MCG TABLET PO SCH (09:59)
[2022-02-16 02:51] LABS: Hematocrit 36.8 % (37.5-50.1); Hemoglobin 12.2 g/dL (12.9-16.9); Mean Corpuscular HGB Conc 33.2 g/dL (31.6-35.5); Mean Corpuscular Hemoglobin 27.9 pg (28.0-33.3); Mean Platelet Volume 10.1 fL (9.4-12.4); Platelet Count 355 K/mcL (140-400); Red Blood Count 4.38 M/mcL (4.19-5.50); Red Cell Distribution Width 13.4 % (11.5-14.5); White Blood Count 7.3 K/mcL (4.3-11.1)
[2022-02-16 03:05] LABS: BUN/Creatinine Ratio 22 (6-26); Blood Urea Nitrogen 20 mg/dL (6-20); Calcium 9.4 mg/dL (8.6-10.3); Carbon Dioxide 28 mEq/L (23-29); Chloride 100 mEq/L (98-107); Glucose 99 mg/dL (70-105); Osmolality,Calculated 281 (280-300); Potassium 4.3 mEq/L (3.5-5.1); Sodium 134 mEq/L (136-145); eGFR For African Americans > 60 (> 60); eGFR For Non-African Americans > 60 (> 60)
[2022-02-16] MEDS: *HR* Heparin 5,000 UNIT/ML VIAL SQ SCH ×3 (05:46→20:14)
[2022-02-16] MEDS: Tiotropium 10 INH DOSE IH SCH (07:44)
[2022-02-16] MEDS: Cholecalciferol (D-3) 1,000 UNIT (25MCG) TABLET PO SCH (09:37)
[2022-02-16] MEDS: Aspirin Enteric Coated 81 MG Tablet PO SCH (09:37)
[2022-02-16] MEDS: Gabapentin 400 MG CAPSULE PO SCH ×3 (09:37→20:12)
[2022-02-16] MEDS: Cyanocobalamin (B-12) 1,000 MCG TABLET PO SCH (09:38)
[2022-02-17] MEDS: *HR* HYDROcodone/Acet 5/325 mg TABLET PO PRN (00:01)
[2022-02-17] MEDS: *HR* Heparin 5,000 UNIT/ML VIAL SQ SCH ×3 (05:09→21:24)
[2022-02-17] MEDS: Tiotropium 10 INH DOSE IH SCH (07:21)
[2022-02-17] MEDS: Gabapentin 400 MG CAPSULE PO SCH ×3 (09:35→21:23)
[2022-02-17] MEDS: Aspirin Enteric Coated 81 MG Tablet PO SCH (09:35)
[2022-02-17] MEDS: Cholecalciferol (D-3) 1,000 UNIT (25MCG) TABLET PO SCH (09:35)
[2022-02-17] MEDS: Cyanocobalamin (B-12) 1,000 MCG TABLET PO SCH (09:35)
[2022-02-18] MEDS: *HR* Heparin 5,000 UNIT/ML VIAL SQ SCH ×3 (05:03→21:05)
[2022-02-18] MEDS: Cyanocobalamin (B-12) 1,000 MCG TABLET PO SCH (09:21)
[2022-02-18] MEDS: Aspirin Enteric Coated 81 MG Tablet PO SCH (09:21)
[2022-02-18] MEDS: Gabapentin 400 MG CAPSULE PO SCH ×3 (09:21→21:04)
[2022-02-18] MEDS: Cholecalciferol (D-3) 1,000 UNIT (25MCG) TABLET PO SCH (09:22)
[2022-02-18] MEDS: Tiotropium 10 INH DOSE IH SCH (09:57)
[2022-02-18] MEDS: *HR* HYDROcodone/Acet 5/325 mg TABLET PO PRN (10:32)
[2022-02-19] MEDS: *HR* Heparin 5,000 UNIT/ML VIAL SQ SCH ×2 (05:45→14:11)
[2022-02-19] MEDS: Tiotropium 10 INH DOSE IH SCH (07:43)
[2022-02-19] MEDS: Gabapentin 400 MG CAPSULE PO SCH (08:24)
[2022-02-19] MEDS: Cyanocobalamin (B-12) 1,000 MCG TABLET PO SCH (08:25)
[2022-02-19] MEDS: Aspirin Enteric Coated 81 MG Tablet PO SCH (08:25)
[2022-02-19] MEDS: Cholecalciferol (D-3) 1,000 UNIT (25MCG) TABLET PO SCH (08:25)
[2022-02-19 11:32] VITALS: BP 93/56; PULSE 99; TEMP 98.1; O2SAT 93
== END 2022-02-19 15:27 | disposition home health service (06) | DRG 552 ==
LOC: 3ANU 11:02 → EMEROOARM 11:02 → SUATTDRO 17:25 → 3ANU 18:00 → SUATTDRO 18:44
PROVIDERS: ADMIT Pharmacist; ATTEND Internal Medicine